=== PATIENT | female | born 1990 | race Two or more races ===

== ENCOUNTER 2019-03-06 13:07 | Emergency (ER) | payer OTHER ==
[~2019-03-06] VITALS: Ht 175.3 cm; Wt 71.2 kg
[~2019-03-06 13:07] MED LIST: BENADRYL25 MG PO; MEDROL4 MG PO; ORPH100T PO; TYLENOL325 MG PO; ZANTAC150 MG PO
== END 2019-03-06 17:32 | disposition home or self-care (01) ==
LOC: ER 13:07
DX: J00 Acute nasopharyngitis [common cold] (principal); J45.998 Other asthma